=== PATIENT | male | born 1990 | race Caucasian/White ===

== ENCOUNTER 2018-03-14 21:35 | Emergency (ER) | payer OTHER ==
[~2018-03-14] VITALS: Ht 182.9 cm; Wt 65.8 kg
[2018-03-14 21:38] VITALS: BP 138/100
[2018-03-14] MEDS ORDERED: FLUORESCEIN OPTH STRIP 0.6 MG ONE (22:39)
[2018-03-14 23:00] VITALS: BP 138/100
== END 2018-03-14 23:00 | disposition home or self-care (01) ==
LOC: MED 21:35
DX: H10.213 Acute toxic conjunctivitis, bilateral (principal); F17.210 Nicotine dependence, cigarettes, uncomplicated
CPT/HCPCS: 99283

== ENCOUNTER 2019-11-05 09:14 | Emergency (ER) | payer MEDICAID, OTHER ==
[~2019-11-05] VITALS: Ht 180.3 cm; Wt 76.3 kg
--- NOTE | 2019-11-05 09:19 | NUR ---
TO ED 04.
[2019-11-05 09:23] VITALS: BP 141/83
[2019-11-05] MEDS ORDERED: KETOROLAC 60 MG/2 ML VIAL IM ONE (09:30)
--- NOTE | 2019-11-05 09:37 | NUR ---
29/M FROM TRIAGE C/O GENERALIZED BODY ACHES X 2 WEEKS. 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 IN BED FOR MSE. PMHX--BONE TUMOR. NDKA
--- NOTE | 2019-11-05 10:00 | NUR ---
REPORT RELIEF OF PAIN WITH IM TORADOL. RATES PAIN AT 4/10.
--- NOTE | 2019-11-05 10:07 | NUR ---
Patient discharged with v/s stable. Written and verbal after care instructions given and explained. Patient alert, oriented and verbalized understanding of instructions. Ambulatory with steady gait. All questions addressed prior to discharge. ID band removed. Patient advised to follow up with PMD. Rx of MOTRIN SUDAFED given. Patient educated on indication of medication including possible reaction and side effects. Opportunity to ask questions provided and answered.
[2019-11-05 10:08] VITALS: BP 141/83
== END 2019-11-05 10:07 | disposition home or self-care (01) ==
LOC: MED 09:14
DX: M79.10 Myalgia, unspecified site (principal); R09.81 Nasal congestion; F17.200 Nicotine dependence, unspecified, uncomplicated; Z98.890 Other specified postprocedural states
CPT/HCPCS: 96372; 99283; J1885

== ENCOUNTER 2022-10-12 08:49 | Emergency (ER) | payer MEDICAID ==
[~2022-10-12] VITALS: Ht 182.9 cm; Wt 78.0 kg
[2022-10-12 08:58] VITALS: BP 127/81
--- NOTE | 2022-10-12 09:10 | NUR ---
32M presents to ED with c/o right knee pain x2 months worsening two days ago. Pt reports injuring right knee during exercises on 08/31/2022. 2 days ago pt reports kicking a box and feeling worsening pain to right knee. Pt reports a constant, aching like, 7/10 nonradiating pain. Pt able to ambulate with steady gait. No obvious swelling or deformities noted upon assessment.
[2022-10-12] MEDS ORDERED: IBUP-2213 PO (09:24)
[2022-10-12] MEDS ORDERED: IBUPROFEN 600 MG TAB PO ONE (09:25)
--- NOTE | 2022-10-12 09:31 | NUR ---
EMMA WRAP X 1 TO R KNEE. + CMS
--- NOTE | 2022-10-12 09:48 | NUR ---
Patient discharged with v/s stable. Written and verbal after care instructions about knee sprain given and explained. Patient alert, oriented and verbalized understanding of instructions. Ambulatory with steady gait. All questions addressed prior to discharge. ID band removed. Patient advised to follow up with PMD. Rx of Ibuprofen given. Patient educated on indication of medication including possible reaction and side effects. Opportunity to ask questions provided and answered.
== END 2022-10-12 09:48 | disposition home or self-care (01) ==
LOC: MED 08:49
DX: S83.91XA Sprain of unspecified site of right knee, initial encounter (principal); X58.XXXA Exposure to other specified factors, initial encounter; Y93.89 Activity, other specified; Y92.89 Other specified places as the place of occurrence of the external cause; Y99.8 Other external cause status
CPT/HCPCS: 73562; 99283

== ENCOUNTER 2022-12-07 12:28 | Emergency (ER) | payer MEDICAID ==
[~2022-12-07] VITALS: Ht 182.9 cm; Wt 78.9 kg
[~2022-12-07 12:28] MED LIST: IBUP-2213 PO
[2022-12-07 12:34] VITALS: BP 140/80
--- NOTE | 2022-12-07 12:39 | NUR ---
pt in bed 2, no ac distress, here for throat pain, sr up times 2
[2022-12-07] MEDS ORDERED: AMPICILLIN/SULBACTAM 3 GM in NACL 0.9% 100 ML IV ONE (12:50)
[2022-12-07] MEDS ORDERED: KETOROLAC 30 MG/ML VIAL IVP ONE (12:50)
[2022-12-07] MEDS ORDERED: NACL 0.9% 1,000 ML IV ONE (12:50)
[2022-12-07] MEDS ORDERED: AMPICILLIN/SULBACTAM 3 GM VIAL ONE (13:04)
[2022-12-07] MEDS ORDERED: DEXAMETHASONE 10 MG/ML VIAL IVP ONE (13:50)
--- NOTE | 2022-12-07 14:14 | NUR ---
STREP SWABS COLLECTED AND WALKED TO LAB
[2022-12-07] MEDS ORDERED: BENZ-300 PO (14:30)
[2022-12-07] MEDS ORDERED: AMOX1TAB8 PO (14:30)
[2022-12-07] MEDS ORDERED: IBUP-2213 PO (14:30)
[2022-12-07 14:49] VITALS: BP 122/78
--- NOTE | 2022-12-07 14:54 | NUR ---
Patient discharged with v/s stable. Written and verbal after care instructions given and explained. Patient verbalized understanding. Ambulatory with steady gait. All questions addressed prior to discharge. Advised to follow up with PMD.
--- NOTE | 2022-12-10 16:40 | NUR ---
LATE ENTRY. RECEIVED POSITIVE THROAT CULTURE. FORM GIVEN TO DR TRUJILLO. TREATMENT APPROPRIATE. FORM PLACED IN BINDER
== END 2022-12-07 14:54 | disposition home or self-care (01) ==
LOC: MED 12:28
DX: J36 Peritonsillar abscess (principal); R03.0 Elevated blood-pressure reading, without diagnosis of hypertension; F17.210 Nicotine dependence, cigarettes, uncomplicated; Z71.6 Tobacco abuse counseling
CPT/HCPCS: 87081; 96365; 96375; 99284; J0295; J1100; J1885; J7030; 99285